=== PATIENT | male | born 1985 | race Caucasian/White ===

== ENCOUNTER 2018-02-16 08:31 | Emergency (ER) | payer MEDICAID ==
[~2018-02-16] VITALS: Ht 185.4 cm; Wt 106.6 kg
[2018-02-16 08:37] VITALS: BP_SYST 123
[2018-02-16 10:00] VITALS: BP_SYST 123
== END 2018-02-16 10:00 | disposition home or self-care (01) ==
LOC: SED 08:31
DX: G89.29 Other chronic pain (principal); M25.561 Pain in right knee
CPT/HCPCS: 73564; 99284

== ENCOUNTER 2018-06-12 10:54 | Emergency (ER) | payer MEDICAID ==
[~2018-06-12] VITALS: Ht 185.4 cm; Wt 99.8 kg
[2018-06-12 10:59] VITALS: BP_SYST 144
--- NOTE | 2018-06-12 11:01 | NUR ---
Patient to ER bed 07 to gown for evaluation. Side rails up.
--- NOTE | 2018-06-12 11:10 | NUR ---
ER Dr. CANELA at bedside examining patient.
--- NOTE | 2018-06-12 11:14 | NUR ---
Radiology at bedside for CXR
--- NOTE | 2018-06-12 11:17 | NUR ---
PATIENT SITTING IN BED COMPLAINING OF FEVER BUT NONE AT MOMENT. PATIENT COMPLAINING OF DAIRRHEA, COUGH, AND SORE THROAT SINCE FRIDAY. PATIENT COMPLAINING OF PAIN 7/10 IN HEAD RADIATING TO BACK. PATIENT COMPLAINING OF RASH ON BACK. REDNESS ON UPPER BACK SEEN. PATIENT SAID HE HAS BEEN TAKING AMOXACILLIN SINCE FRIDAY AND IBUPROFEN AND TYLENOL BUT HASNT BEEN WORKING PER PATIENT.
--- NOTE | 2018-06-12 11:45 | NUR ---
Lab at bedside for blood draw
[2018-06-12 12:23] LABS: WHITE BLOOD COUNT (AUTO) 3.5 K/uL (4.8-10.8)
[2018-06-12 12:24] LABS: HEMATOCRIT 42.9 % (36-54); HEMOGLOBIN 15.1 g/dL (14.0-18.0); MEAN CORPUSCULAR HEMOGLOBIN 31 pg (27-31); MEAN CORPUSCULAR HGB CONC 35 % (32-36); MEAN CORPUSCULAR VOLUME 89 fL (79.0-98.0); PLATELET COUNT (AUTO) 167 K/uL (130-430); RED BLOOD CELL COUNT(AUTO) 4.81 MIL/uL (4.2-6.2); RED CELL DISTRIBUTION WIDTH 12.8 % (9.0-15.0)
[2018-06-12 12:34] LABS: INR 1.1 (0.80-1.20)
[2018-06-12 12:35] LABS: CREATININE 0.92 mg/dL (0.55-1.30); POTASSIUM 3.8 mmol/L (3.5-5.1); TOTAL BILIRUBIN 0.3 mg/dL (0.0-1.0)
[2018-06-12 12:36] LABS: ALBUMIN 3.4 g/dL (3.4-4.8)
[2018-06-12 12:39] LABS: BAND % (MANUAL) 2 % (0-6); BASOPHILS % (MANUAL) 0 % (0-2); EOSINOPHILS % (MANUAL) 4 % (0-7); LYMPHOCYTES % (MANUAL) 56 % (20-46); MONOCYTES % (MANUAL) 8 % (0-11)
[2018-06-12] MEDS ORDERED: IBUPROFEN 800 MG TABLET PO ONE (12:45)
[2018-06-12] MEDS ORDERED: ONDANSETRON 4 MG ODT TAB PO ONE (12:45)
--- NOTE | 2018-06-12 13:00 | NUR ---
PATIENT REFUSED MEDICATIONS ORDERED. PATIENT SAID HE WOULD RATHER FEEL HOW HE FILLS BECAUSE HE'S TAKEN THAT MEDICATION BEFORE. PATIENT SAID HE JUST WANTS WHAT EVER CAUSING IT TO STOP.
[2018-06-12 13:11] VITALS: BP_SYST 148
--- NOTE | 2018-06-12 13:12 | NUR ---
Patient given written and verbal discharge instructions and verbalizes understanding. ER MD discussed with patient the results and treatment provided. Patient in stable condition. Patient requested to keep ID arm band. Rx of ZOFRAN AND IBUPROFEN given. Patient educated on pain management and to follow up with PMD. Pain Scale 0/10. Opportunity for questions provided and answered. Medication side effect fact sheet provided.
== END 2018-06-12 13:11 | disposition home or self-care (01) ==
LOC: SED 10:54
DX: K52.9 Noninfective gastroenteritis and colitis, unspecified (principal); R21 Rash and other nonspecific skin eruption; R50.9 Fever, unspecified
CPT/HCPCS: 36415; 71045; 80053; 81002; 82150-TC; 83605; 83615-TC; 83690-TC; 85007; 85027; 85610-TC; 85730-TC; 99284; Q0162

== ENCOUNTER 2020-03-30 06:54 | Emergency (ER) | payer MEDICAID, SELFPAY ==
[~2020-03-30] VITALS: Ht 185.4 cm; Wt 99.8 kg
[2020-03-30 07:36] VITALS: BP_SYST 152
[2020-03-30 09:41] VITALS: BP_SYST 152
== END 2020-03-30 09:41 | disposition home or self-care (01) ==
LOC: SED 06:54
DX: R05 Cough (principal); R51.9 Headache, unspecified; M79.18 Myalgia, other site; Z20.828 Contact with and (suspected) exposure to other viral communicable diseases
CPT/HCPCS: 36415; 86710; 99283